=== PATIENT | female | born 1945 | race Hispanic/Latino ===

== ENCOUNTER 2017-02-13 10:07 | Emergency (ER) | payer MEDICARE, BC ==
[2017-02-13 10:14] VITALS: BMI 41.3
[2017-02-13 10:19] VITALS: TEMP 98.6
--- NOTE | 2017-02-13 11:11 | ED PDOC ---
Arrival/HPI <Low Lang Adolfo - Last Filed: 02/13/17 13:09> - General Historian: Patient - History of Present Illness Time/Duration: < week Symptom Onset: Sudden Symptom Course: Worsening Quality: Stabbing Severity Level: 7 Activities at Onset: Rest <GeovaniIlan - Last Filed: 02/13/17 13:16> - General Chief Complaint: Lower Extremity Problem/Injury Time Seen by Provider: 02/13/17 10:19 - History of Present Illness Narrative History of Present Illness (Text): 02/13/17 10:56 71 year old female with past medical history sciatica, varicose veins, phlebitis , hypertension, hypothyroidism, and dyslipidemia presents to [facility] with complaint of Right leg pain. Patient reports her right leg pain started on Monday when she was sitting at home and it has been getting progressively worse since. Patient rates the pain 05/15, reports the pain as sharp in quality, it radiates from lower back to front of her right knee. Patient states the similar deon occurred last 3 months ago[address] Patient saw Dr. Bo Kahn in the past whom instructed her to take 800mg Ibuprofen and ice the area; however, that did not help the patient this time. Patient reports the pain is exacerbated with movement. She denies having numbness or tingling sensation of her lower extremity. She further denies having fever, chills, shortness of breath, chest pain, abdominal pain, nausea or vomiting. (Ilan Olivo) Past Medical History - Provider Review Nursing Documentation Reviewed: Yes - Cardiac Hx Cardiac Disorders: Yes Hx Congestive Heart Failure: Yes (03-15- NEW) - Pulmonary Hx Respiratory Disorders: Yes Hx Pneumonia: Yes Other/Comment: SMOKES < PPD . SMOKED SINCE 12 YRS OLD. - Neurological Hx Neurological Disorder: Yes Hx Dizziness: Yes (LEFT HEAR GRINDSTONE) - HEENT Hx HEENT Disorder: Yes Hx Deafness: Yes (LEFT EAR) - Renal Hx Renal Disorder: No - Endocrine/Metabolic Hx Endocrine Disorders: Yes Hx Hypothyroidism: Yes - Hematological/Oncological Hx Blood Disorders: No Other/Comment: RECEIVING B 12 SHOTS - Integumentary Hx Dermatological Disorder: Yes (VARICOSITIES,SPIDER VEIN ,SELVIN LE.) - Musculoskeletal/Rheumatological Hx Musculoskeletal Disorders: Yes Hx Back Pain: Yes (CHRONIC) Hx Falls: No - Gastrointestinal Hx Gastrointestinal Disorders: No Hx Bowel Surgery: No - Genitourinary/Gynecological Hx Genitourinary Disorders: Yes (TUBAL LIGATION) - Psychiatric Hx Psychophysiologic Disorder: No Hx Substance Use: No - Surgical History Other/Comment: TUBAL LIGATION,LEFT THUMB SURGERY <Ilan Olivo - Last Filed: 02/13/17 13:16> Family/Social History Family/Social History: CAD/ME (mother of ME at 81yo) Smoking Status: Current Some Days Smoker Hx Alcohol Use: No Hx Substance Use: No <Ilan Olivo - Last Filed: 02/13/17 13:16> Allergies/Home Meds <MendozacarsonLow Adolfo - Last Filed: 02/13/17 13:09> <Ilan Olivo - Last Filed: 02/13/17 13:16> Allergies/Adverse Reactions: Allergies cortisone Allergy (Verified 02/13/17 10:14) SWELLING Sulfa (Sulfonamide Antibiotics) Adverse Reaction (Severe, Verified 02/13/17 10: 14) DIZZINESS Home Medications: Home Meds Medication Instructions Recorded Confirmed Aspirin [Adult Low Dose Aspirin EC] 81 mg PO DAILY 04/15/16 02/13/17 Levothyroxine [Synthroid] 200 mcg PO DAILY 04/15/16 02/13/17 Simvastatin [Simvastatin] 40 mg PO DAILY 04/15/16 02/13/17 Glucosa Shah 2Kcl/Chondroitin Shah 1 tab PO DAILY 02/13/17 02/13/17 [Glucosamine & Chondroitin Cap] [place]-3 Fatty Acids [Fish Oil] 2,000 mg PO DAILY 02/13/17 02/13/17 Propylene Glycol/Peg 400/Pf 1 drop BOTHEYES BID 02/13/17 02/13/17 [Systane 0.3-0.4% Eye Drops] Review of Systems - Review of Systems Constitutional: Normal. absent: Fatigue, Fevers Eyes: Normal. absent: Vision Changes, Eye Pain ENT: Normal. absent: Rhinorrhea Respiratory: Normal. absent: SOB, Cough, Wheezing Cardiovascular: Normal. absent: Chest Pain, Edema Gastrointestinal: Normal, Constipation. absent: Abdominal Pain, Nausea, Vomiting Musculoskeletal: Normal Skin: Normal, Other (varicose veins) Neurological: Normal. absent: Headache, Dizziness Psychiatric: Normal. absent: Depression <Ilan Olivo - Last Filed: 02/13/17 13:16> Physical Exam Vital Signs Reviewed: Yes Temperature: Afebrile Blood Pressure: Hypertensive Pulse: Tachycardic Respiratory Rate: Normal Appearance: Positive for: Well-Appearing. No: Uncomfortable Pain Distress: Mild Mental Status: Positive for: Alert and Oriented X 3. No: Confused, Agitated - Systems Exam Head: Present: Atraumatic, Normocephalic Pupils: Present: PERRL Extroacular Muscles: Present: EOMI Conjunctiva: Present: Normal Mouth: Present: Moist Mucous Membranes Neck: Present: Normal Range of Motion Respiratory/Chest: Present: Clear to Auscultation, Good Air Exchange. No: Respiratory Distress, Accessory Muscle Use, Wheezes Cardiovascular: Present: Regular Rate and Rhythm, Normal S1, S2. No: Murmurs Abdomen: Present: Normal Bowel Sounds. No: Tenderness, Distention, Peritoneal Signs Back: Present: Paraspinal Tenderness (lumbar paraspinal tenderness) Upper Extremity: Present: Normal Inspection. No: Cyanosis, Edema Lower Extremity: Present: NORMAL PULSES, Cyanosis, Tenderness, Neurovascularly Intact (No sensory deficits appreciated). No: Edema, Deformity, Temperature Abnormalties Neurological: Present: GCS=15, CN II-XII Intact, Speech Normal, Normal Sensory Function, Gait Normal Skin: Present: Warm, Dry, Other (Varicose veins throughout bilateral lower extremities. Chronic bilateral feet dark discolorations). No: Rashes Psychiatric: Present: Alert, Oriented x 3, Normal Insight, Normal Concentration <Ilan Olivo - Last Filed: 02/13/17 13:16> Vital Signs Temp Pulse Resp BP Pulse Ox 02/13/17 12:07 78 18 136/64 92 L 02/13/17 10:14 98.6 F 98 H 17 161/81 H 97 Medical Decision Making <Low Lang - Last Filed: 02/13/17 13:09> Re-evaluation Time: 13:05 Reassessment Condition: Improved <Ilan Olivo - Last Filed: 02/13/17 13:16> ED Course and Treatment: 02/13/17 12:23 Case discussed with US Tech, Doppler is negative. 02/13/17 13:06 for me pt reports right low back and buttock pain radiating down her leg. feels similar to sciatica in the past and I think this is most likely the cause. her duplex was neg for dvt and she has normal strength, sensation, and pulses in the lower extremities. after toradol she says she feels much better and is comfortable w dc. follow up and return precautions advised. (Low Lang) 02/13/17 11:22 -Right Lower extremity Duplex -Toradol 10mg IV -Reassess -DC home 02/13/17 13:10 Patient's pain improved. Based on history and physical exam, patient's complain is likely sciatica in nature. Right lower extremity duplex showed no evidence of DVT. (Ilan Olivo) - RAD Interpretation Radiology Orders: 02/13/17 10:53 DUPLEX LOWER EXTRM VEIN RIGHT [US] Stat - Medication Orders Current Medication Orders: Discontinued Medications Ketorolac Tromethamine (Toradol) 10 mg IVP STAT STA Stop: 02/13/17 10:56 Last Admin: 02/13/17 11:07 Dose: 10 MG IVP Administration Document 02/13/17 11:07 JOChiara (Rec: 02/13/17 11:07 JOL [id number]) Charges for Administration # of IVP Administrations 1 - PA / ARCHITECTURE ANALYST / Resident Statement MD/DO has reviewed & agrees with the documentation as recorded. MD/DO has examined the patient and agrees with the treatment plan. - Scribe Statement The provider has reviewed the documentation as recorded by the Scribe <Low Lang - Last Filed: 02/13/17 13:09> - PA / ARCHITECTURE ANALYST / Resident Statement / has examined the patient and agrees with the treatment plan. <Ilan Olivo - Last Filed: 02/13/17 13:16> - Scribe Statement Gentry Hernandez All medical record entries made by the Scribe were at my direction and personally dictated by me. I have reviewed the chart and agree that the record accurately reflects my personal performance of the history, physical exam, medical decision making, and the department course for this patient. I have also personally directed, reviewed, and agree with the discharge instructions and disposition. (Low Lang) Disposition/Present on Arrival - Present on Arrival Any Indicators Present on Arrival: No - Disposition Have Diagnosis and Disposition been Completed?: Yes Disposition Time: 13:06 <Low Lang - Last Filed: 02/13/17 13:09> - Present on Arrival Any Indicators Present on Arrival: No History of DVT/PE: No History of Uncontrolled Diabetes: No Urinary Catheter: No History of Decub. Ulcer: No History Surgical Site Infection Following: None - Disposition Have Diagnosis and Disposition been Completed?: Yes <Ilan Olivo - Last Filed: 02/13/17 13:16> - Disposition Diagnosis: Sciatica Disposition: HOME/ ROUTINE Patient Problems: Current Active Problems Problem Status Diagnosed Sciatica Acute Condition: IMPROVED Discharge Instructions (ExitCare): Sciatica (ED) Additional Instructions: Please follow up with your doctor this week. Return to the ER for any worsening symptoms or for any other concerns. Prescriptions: Naproxen 500 mg PO Q12H PRN #8 tab PRN Reason: Pain, Moderate (4-7) Referrals: Michel Kahn MD [Primary Care Provider] - Follow up with primary
[2017-02-13 12:40] VITALS: RESP 18
--- NOTE | 2017-02-13 12:52 | US ---
PROCEDURE: Right lower extremity venous US HISTORY: Leg pain and swelling. Evaluate for DVT. PHYSICIAN(S): Bo Kahn M.D. TECHNIQUE: Duplex sonography and color-flow Doppler with graded compression were used to evaluate the deep venous system of the right lower extremity. The exam is somewhat limited by body habitus and edema. FINDINGS: The visualized deep venous system of the right lower extremity is sonographically normal and compressible. Normal waveforms and augmentation are seen. There is no sonographic evidence for deep venous thrombosis in the visualized segments of the right lower extremity. IMPRESSION: 1. No sonographic evidence for deep venous thrombosis in the visualized segments of the right lower extremity.
[2017-02-13 13:44] VITALS: BP 147/79; PULSE 72; O2SAT 97
== END 2017-02-13 13:59 | disposition home or self-care (01) ==
LOC: ED 10:07
DX: M54.30 Sciatica, unspecified side (principal); I10 Essential (primary) hypertension; E78.5 Hyperlipidemia, unspecified; Z72.0 Tobacco use
CPT/HCPCS: 93971; 96374; 99284; J1885

== ENCOUNTER 2018-11-19 12:02 | Outpatient (CLI) | payer MEDICARE, BC | END 2018-11-19 12:03 | disposition home or self-care (01) | LOC: RAD 12:02 ==

== ENCOUNTER 2019-01-14 05:37 | Outpatient (CLI) | payer MEDICARE, BC | END 2019-01-14 05:38 | disposition home or self-care (01) | LOC: PET-BROA 05:37 | DX: R91.1 Solitary pulmonary nodule (principal); R91.8 Other nonspecific abnormal finding of lung field ==

== ENCOUNTER 2019-03-06 09:56 | Outpatient (CLI) | payer MEDICARE, BC | END 2019-03-06 09:57 | disposition home or self-care (01) | LOC: PAT 09:56 | DX: J35.9 Chronic disease of tonsils and adenoids, unspecified (principal); D38.0 Neoplasm of uncertain behavior of larynx ==

== ENCOUNTER 2019-03-22 09:10 | Outpatient (CLI) | payer MEDICARE, BC | END 2019-03-22 09:11 | disposition home or self-care (01) | LOC: CARDIO 09:10 ==